=== PATIENT | female | born 1945 | race Caucasian/White ===

== ENCOUNTER 2021-04-08 19:11 | Inpatient (IN) | payer MEDICARE ==
[~2021-04-08] VITALS: Ht 152.4 cm; Wt 52.7 kg
[2021-04-08 20:58] VITALS: BP 108/60
[2021-04-08 22:39] LABS: HEMATOCRIT 37.2 % (37.0-47.0); HEMOGLOBIN 12.3 gm/dL (12.0-15.0); MCH 30.5 pg (26.0-34.0); MCHC 33.1 g/dL (28.0-37.0); MCV 92.4 fL (80.0-100.0); RBC 4.03 mil/uL (4.20-5.00); RDW 14.3 % (10.5-14.5); WBC 11.1 thou/uL (4.0-11.0)
[2021-04-08 22:53] LABS: APTT 31.6 Seconds (24.5-32.8); INR 0.96; PROTIME 10.5 Seconds (10.5-12.1)
[2021-04-08 22:57] LABS: CHOLESTEROL 126 mg/dL (<200); HDL CHOLESTEROL 40 mg/dL (>40); LDL CHOLESTEROL 43 mg/dL (<100); TC:HDL 3.2 Ratio (Not establshd); TRIGLYCERIDE 218 mg/dL (<150); VLDL 44 mg/dL (<40)
[2021-04-08 23:41] VITALS: BP 100/57
--- NOTE | 2021-04-09 00:28 | NUR ---
PT ARRIVED FROM [facility] AT AROUND 2030 HRS. 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 AFEBRILE.LASIX GIVEN AND PT DIURESING.HEPARIN DRIP ORDERED BUT NOT INITIATED BECAUSE WE DONT HAVE ANY STOCK IN THE UNIT-PHARMACY WORKING ON IT AND CAMACHO MCCORMACK AWARE.
[2021-04-09 03:09] LABS: HEMATOCRIT 33.8 % (37.0-47.0); HEMOGLOBIN 11.3 gm/dL (12.0-15.0); MCH 30.6 pg (26.0-34.0); MCHC 33.2 g/dL (28.0-37.0); RBC 3.68 mil/uL (4.20-5.00); WBC 8.4 thou/uL (4.0-11.0)
[2021-04-09 04:06] LABS: CALCIUM 9.3 mg/dL (8.5-10.1); CREATININE 1.4 mg/dL (0.6-1.0); MAGNESIUM 1.3 mg/dL (1.8-2.4); POTASSIUM 3.9 mmol/L (3.5-5.1)
[2021-04-09 04:20] VITALS: BP 113/63
[2021-04-09 08:48] VITALS: BP 94/52
--- NOTE | 2021-04-09 10:18 | 2DMMODE ---
[facility] [place] [address] 2 D/M-MODE ECHOCARDIOGRAM Name: JUDSON RODRIGUEZ Room #: 210-P ADM IN M.R.#: [id number] Admission: 04/08/21 Attend Phys: Bienvenido Smalls MD Discharge: Date of : 43 Report #: [id number] THIS REPORT FOR: cc: FAM - Family physician unknown FAM - Family physician unknown Fadi Urbina MD ~ APPROVED REPORT Study performed: 04/09/2021 08:53:32 EXAM: Comprehensive 2D, Doppler, and color-flow Echocardiogram Patient Location: Bedside Room #: 210 Status: routine BSA: 1.50 HR: 76 bpm BP: 94/52 mmHg Rhythm: LBBB Other Information Study Quality: Good Indications NSTEMI, SOB, CP. Hx: CM (35%). CHF, COPD. 2D Dimensions RVDd: 31.74 mm IVSd: 8.63 (7-11mm) LVOT Diam: 17.97 (18-24mm) LVDd: 57.59 mm PWd: 7.35 (7-11mm) Ascending Ao: 22.37 (22-36mm) LVDs: 52.12 (25-40mm) Left Atrium: 38.07 (27-40mm) Aortic Root: 25.67 mm Volumes Left Atrial Volume (Systole) Single Plane 4CH: 54.39 mL Single Plane 2CH: 52.20 mL LA ESV Index: 40.00 mL/m2 Aortic Valve AoV Peak Alber.: 1.24 m/s AO Peak Gr.: 6.13 mmHg LVOT Max P.01 mmHg LVOT Max V: 0.50 m/s [facility] [address] [place] [address] 2 D/M-MODE ECHOCARDIOGRAM Name: JUDSON RODRIGUEZ Room #: 210-P [facility] IN [facility].#: [id number] Admission: 04/08/21 Attend Phys: Bienvenido Smalls MD Discharge: Date of : 43 Report #: [id number] KRISTEN Vmax: 1.03 cm2 Mitral Valve E/A Ratio: 1.3 MV Decel. Time: 168.41 ms MV E Max Alber.: 1.42 m/s MV A Alber.: 1.07 m/s MV PHT: 48.84 ms IVRT: 53.06 ms Pulmonary Valve PV Peak Alber.: 0.66 m/s PV Peak Gr.: 1.72 mmHg Pulmonary Vein P Vein S: 0.30 m/s P Vein A: 0.28 m/s P Vein D: 0.61 m/s P Vein A Dur.: 90.0 msec P Vein S/D Ratio: 0.49 Tricuspid Valve TR Peak Alber.: 3.35 m/s RAP Estimate: 10.00 mmHg TR Peak Gr.: 45.00 mmHg PA Pressure: 55.00 mmHg Left Ventricle Left ventricle is mildly dilated. There is global hypokinesis of the left ventricle. There is normal left ventricular wall thickness. Left ventricular systolic function is severely decreased. LVEF is 20%. Moderate diastolic dysfunction is present (pseudonormal filling). Right Ventricle The right ventricle is normal size. The right ventricular systolic function is normal. Atria Left atrium is mildly dilated. The right atrium size is normal. Aortic Valve The aortic valve is normal in structure; minimally calcified. Trace aortic regurgitation. There is no aortic valvular stenosis. Mitral Valve The mitral valve is normal in structure. Mild mitral annular calcification. Moderate to severe mitral regurgitation [facility] [address] [place] [address] 2 D/M-MODE ECHOCARDIOGRAM Name: JUDSON RODRIGUEZ Room #: 210-P ADM IN [facility].#: [id number] Admission: 04/08/21 Attend Phys: Bienvenido Smalls MD Discharge: Date of : 43 Report #: [id number] Tricuspid Valve The tricuspid valve is normal in structure. Mild to moderate tricuspid regurgitation. Estimated PAP is 55mmHg. Pulmonic Valve The pulmonary valve is normal in structure. Trace pulmonic regurgitation. Great Vessels The aortic root is normal in size. The ascending aorta is normal in size. IVC is normal in size and collapses <50% with inspiration. Pericardium There is no pericardial effusion. Right pleural effusion noted. <Conclusion> Left ventricle is mildly dilated. There is normal left ventricular wall thickness. Left ventricular systolic function is severely decreased. Moderate diastolic dysfunction is present (pseudonormal filling). The right ventricle is normal size. Left atrium is mildly dilated. Trace aortic regurgitation. Moderate to severe mitral regurgitation Mild to moderate tricuspid regurgitation. Estimated PAP is 55mmHg. <ELECTRONICALLY SIGNED> By: Fadi Urbina MD 04/09/21 1017 16 16 Fadi Urbina MD /INF
--- NOTE | 2021-04-09 13:23 | CATHLAB ---
[facility] [place] [address] INVASIVE PROCEDURE REPORT Name: JUDSON RODRIGUEZ Room #: 210-P ADM IN M.R.#: [id number] Admission: 04/08/21 Attend Phys: Bienvenido Smalls MD Discharge: Date of : 43 Report #: [id number] THIS REPORT FOR: cc: FAM - Family physician unknown FAM - Family physician unknown Fadi Urbina MD ~ APPROVED REPORT Study performed: 04/09/2021 11:30:15 Patient Details Patient Status: In-Patient Room #: 210 The patient is a 75 year-old female Event Personnel Fadi Urbina Patient Services Specialist, Emiliana Savage RTR Monitor, Lupe Sutton RTR Scrub, Kathe Vick RN support coordinator Performed Art Access - R femoral artery* Left Heart Cath w/or w/o Coronaries [id number] [facility] Hemostasis with Manual pressure 93781 Initial Mod Sed Same Phys/QHP Gr5y [id number] [id number] Mod Sed Same Phys/QHP Ea [id number] Indication Non-STEMI , Dyspnea, Cardiomyopathy, Chest pain Risk Factors Chronic Lung DiseaseHypercholesterolemia, Hypertension, Tobacco History () Procedure Narrative The Right Groin^ was infiltrated with 1% Lidocaine subcutaneous anesthesia. A PINNACLE 4FR Sheath #[id number] sheath was inserted into the RFA^. Coronary angiography was performed using coronary diagnostic catheters. The right coronary system was accessed and visualized with a JR4 catheter. The left coronary system was accessed and visualized with a JL3.5 catheter. The left ventricle was accessed and visualized with a JR4 catheter. Hemostasis was obtained with manual pressure following sheath removal without any complications. The patient tolerated the procedure well and there were no complications associated with the procedure. There was no hematoma. [facility] [address] [place] [address] INVASIVE PROCEDURE REPORT Name: JUDSON RODRIGUEZ Room #: 210-P [facility] IN [facility]#: [id number] Admission: 04/08/21 Attend Phys: Bienvenido Smalls MD Discharge: Date of : 43 Report #: [id number] Intraoperative Conscious Sedation Sedation start time: 11:41 Case end Time: 12:06 Fentanyl 50 mcg Versed 1 mg Fluoro Time: 2.35 minutes Dose: DAP 1979.30 cGycm2 223 mGy Contrast Type and Amount: Visipaque 35 ml Coronary Angiography The patient's coronary anatomy is left dominant. Diagnostic Cath Left Main The left main artery is a large-caliber vessel, patent with no flow-limiting lesions. LAD The LAD is a moderate-sized caliber vessel, traversing the anterior wall and wrapping around the apex. There is a mild to moderate proximal stenosis at the bifurcation of the first diagonal artery, 30 to 40%. Diagonal 1 This is a moderate-sized caliber vessel with mild disease proximally, 30%. Circumflex The left circumflex artery is a dominant vessel, supplying the left PDA. This vessel is patent with no flow-limiting lesions. OM1 There is a moderate-sized caliber vessel, patent with no flow-limiting lesions. OM2 There is a moderate-sized caliber vessel, patent with no flow-limiting lesions. L PDA There is a moderate-sized caliber vessel, patent with no flow-limiting lesions. Right Coronary This is a small, nondominant vessel. Left Ventriculography Left Ventriculography was not performed. Ejection Fraction was 20% based off patient's Echocardiogram. An LVEDP was measured and there is no gradient across the outflow tract. Hemodynamics The aortic pressure is 110/53 mmHg with a mean of 86 mmHg. The left ventricular pressure is 120/22 mmHg with a mean of mmHg. The left ventricular end diastolic pressure is 37 mmHg. Conclusion 1. There is mild to moderate disease in the proximal LAD and first diagonal artery. 2. This is a left dominant system. [facility] [address] [place] [address] INVASIVE PROCEDURE REPORT Name: JUDSON RODRIGUEZ Room #: 210-P [facility] IN [facility]#: [id number] Admission: 04/08/21 Attend Phys: Bienvenido Smalls MD Discharge: Date of : 43 Report #: [id number] 3. There is severe, nonischemic cardiomyopathy. 4. Recommend guideline directed medical therapy. <ELECTRONICALLY SIGNED> By: Fadi Urbina MD 04/09/21 1718 22 22 Fadi Urbina MD /INF
--- NOTE | 2021-04-09 14:30 | NUR ---
PATIENT ADMITTED FOR NSTEMI. CHART REVIEWED AND CASE DISCUSSED WITH CARE TEAM. CM MET WITH PT THIS DAY. CM ROLE INTRODUCED. PATIENT REPORTS SHE LIVES IN HER TRAILER WITH HER DAUGHTER. SHE REPORTS SHE IS INDEPENDENT WITH ALL ADLS AND MOBILITY AND STILL DRIVES. SHE DENIES ANY HH OR REHAB SERVICES IN THE PAST. HER PCP IS RUSSELL BRONSON NP. PT INDICATED SHE HAS NO CONCERNS GOING HOME AND PLANS TO DC [place] WITH NO NEEDS. NO FURTHER CM INTERVENTIONS AT THIS TIME. WILL CONTINUE TO FOLLOW.
--- NOTE | 2021-04-09 18:27 | NUR ---
PT WENT DOWN FOR CARDIAC CATH TODAY. AFTER PROCEDURE PATIENT CAME UP TO THE FLOOR SPENT 3 HOURS BEDREST, DURING BEDREST PT COMPLAINED OF LEFT FLANK PAIN THAT SHE STATED HAS BEEN THERE ON AND OFF FOR OVER A WEEK RATING THE PAIN A 10/10. MEDICATIONS RECEIVED PATIENT STATED PAIN IS NOW TOLERABLE. PATIENT HAS A RIGHT GROIN SITE THAT IS C/D/I. VITALS REMAINED STABLE.
[2021-04-09 19:35] VITALS: BP 105/64
[2021-04-09 23:06] LABS: GLYCOHEMOGLOBIN (HGB A1C) 6.9 % (4.8-5.6)
[2021-04-10 03:18] LABS: HEMATOCRIT 34.8 % (37.0-47.0); HEMOGLOBIN 11.4 gm/dL (12.0-15.0); MCH 30.7 pg (26.0-34.0); MCHC 32.9 g/dL (28.0-37.0); MCV 93.3 fL (80.0-100.0); RBC 3.73 mil/uL (4.20-5.00); RDW 14.1 % (10.5-14.5); WBC 6.2 thou/uL (4.0-11.0)
[2021-04-10 03:31] VITALS: BP 109/51
--- NOTE | 2021-04-10 03:47 | NUR ---
PT IS ALERT AND PLEASANT. UP WITH SBA TO THE BATHROOM. ROOM AIR AND SATTING ABOVE 94%. DENIES CHEST PIN. C/O LEFT SIDED CHEST PAIN-GETTING PRN MORPHINE.VOIDING OKAY.
[2021-04-10 04:28] LABS: CALCIUM 9.1 mg/dL (8.5-10.1); CREATININE 1.2 mg/dL (0.6-1.0); POTASSIUM 4.3 mmol/L (3.5-5.1)
[2021-04-10 07:00] VITALS: BP 116/69
[2021-04-10] MEDS ORDERED: COREG6.25 MG PO (09:28)
[2021-04-10] MEDS ORDERED: ADULT LOW DOSE81 MG PO (09:28)
[2021-04-10] MEDS ORDERED: LIPITOR 20 MG T20 M1 PO (09:28)
[2021-04-10] MEDS ORDERED: FUROSEMIDE 20 M20 MG PO (09:28)
[2021-04-10 09:47] VITALS: BP 116/69
[2021-04-10 11:00] VITALS: BP 96/54
--- NOTE | 2021-04-10 11:38 | NUR ---
Pt BP low @ 90/40 w/ noon vitals. Notified Dr. Smalls, no addt. orders. Notified cardiology, no addt. orders as pt not symptomatic. Pt still okay to discharge. Inform pt to make cardio appt within the next week.
== END 2021-04-10 13:03 | disposition home or self-care (01) | DRG 280 ==
LOC: 2N 19:11
PROVIDERS: Internal Medicine Cardiovascular Disease; Nurse Practitioner Family; ADMIT Hospitalist; ATTEND Hospitalist
PROC: B211YZZ Fluoroscopy of Multiple Coronary Arteries using Other Contrast (ICD-10-PCS; principal; 2021-04-09)
PROC: 4A023N7 Measurement of Cardiac Sampling and Pressure, Left Heart, Percutaneous Approach (ICD-10-PCS; principal; 2021-04-09)
DX: I21.4 Non-ST elevation (NSTEMI) myocardial infarction (principal); J96.01 Acute respiratory failure with hypoxia; I50.23 Acute on chronic systolic (congestive) heart failure; J44.1 Chronic obstructive pulmonary disease with (acute) exacerbation; N17.9 Acute kidney failure, unspecified; I13.0 Hypertensive heart and chronic kidney disease with heart failure and stage 1 through stage 4 chronic kidney disease, or unspecified chronic kidney disease; I25.5 Ischemic cardiomyopathy; E11.65 Type 2 diabetes mellitus with hyperglycemia; E03.9 Hypothyroidism, unspecified; E78.5 Hyperlipidemia, unspecified; F32.9 Major depressive disorder, single episode, unspecified; G47.00 Insomnia, unspecified; N18.9 Chronic kidney disease, unspecified; F41.9 Anxiety disorder, unspecified; E83.42 Hypomagnesemia; F17.210 Nicotine dependence, cigarettes, uncomplicated; E11.22 Type 2 diabetes mellitus with diabetic chronic kidney disease; Z66 Do not resuscitate; Z80.1 Family history of malignant neoplasm of trachea, bronchus and lung; I25.2 Old myocardial infarction; Z90.49 Acquired absence of other specified parts of digestive tract; Z91.012 Allergy to eggs; Z71.6 Tobacco abuse counseling; Z79.82 Long term (current) use of aspirin; Z79.899 Other long term (current) drug therapy; Z88.2 Allergy status to sulfonamides
CPT/HCPCS: 10081